=== PATIENT | female | born 1995 ===

== ENCOUNTER 2019-09-18 17:08 | Outpatient (CLI) | payer MEDICAID, OTHER ==
[2019-09-18 17:56] VITALS: BP 108/68
== END 2019-09-18 19:45 | disposition home or self-care (01) ==
LOC: TRG 17:08 → APU 17:14 → TRG 19:45
PROVIDERS: ATTEND Obstetrics & Gynecology
DX: O47.1 False labor at or after 37 completed weeks of gestation (principal); Z3A.38 38 weeks gestation of pregnancy
CPT/HCPCS: 59025; Q0177